=== PATIENT | male | born 2000 | race Caucasian/White ===

== ENCOUNTER 2024-06-13 19:17 | Outpatient (REF) | payer OTHER, SELFPAY ==
--- NOTE | ~2024-06-13 | MR_ITS ---
CLINICAL HISTORY: lbp LBP and both hips/groins pain. Possibly got hurt from exercising MR lumbar spine without gadolinium Comparison: None available. Findings: Normal heights of 5 lumbar type vertebrae. No significant listhesis. Heterogeneous marrow signal of the small hemangiomas conus terminates at lower aspect of the L1. No drainable paraspinal fluid collection. No spinal canal stenosis, foraminal narrowing, or nerve root compromise of the lumbar spine. Mild facet arthropathy of the lower lumbar spine. Degenerative disc change with annular fissure and small disc bulge at L5-S1 where there is moderate disc height loss. No CT available for review at this time Abnormal STIR signal support some degree of the acuity of the nondisplaced right sacral alar fracture. Fracture extends to right S1-S2 neural foramen. No malalignment of the imaged SI joints. IMPRESSION: 1. Acute right sacral alar fracture. 2. Disc bulge and annular fissure of the L5-S1 intervertebral disc. 3. No significant spinal stenosis or nerve root compromise of the lumbar spine. This document has been electronically signed by: Valdo Werner MD on 06/13/2024 20:24:18
--- OUTSIDE RECORDS SUMMARY | 2024-06-13 19:51 | XMS_ITS ---
Author Organization [facility] Address [address] [place] [phone] Care Team Providers Care Security Control Assessor Name Role Phone Eugenio Back Primary Care Provider REASON FOR VISIT Rash Medications Medication SIG (Take, Route, Fr equency, Duration) Notes Start Date End Date Status predniSONE 50 mg 1 tab(s) orally once a day for 7 day(s) 11/13/2020 Not-Taking Encounters Encounter Location Date Provider Diagnosis [address] [id number] 09/28/2023 Eugenio Back Plan Of Treatment No Information Progress Notes * MONAE MOOREDOB:2000 ([age] yo M)Acc No.[id number]:09/28/2023 progress note Patient:MONAE KAMARA Account Number:[id number] Provider:?Eugenio Back MD :2000???Age:23 Y???Sex:Male Meng e:09/28/2023 Phone: Address:[address] [place], [place] [phone] Subjective: * Chief Complaints: * ???1. Rash. * Medical History:? * Medications:?Not-Taking pred niSONE 50 mg tablet 1 tab(s) orally once a day Objective: * Vitals:? Assessment: Plan: * Treatment: * * Electronic signature of Oni Back MD on 06/13/2024 at 07:51 PM EST Sign off status: Pending * Provider:?Eugenio Back MD Date:? 024 Generated for Baldevi ng/Fafraciscog/eTransmitting on:?06/13/2024 07:51 PM EST
--- OUTSIDE RECORDS SUMMARY | 2024-06-13 19:51 | XMS_ITS ---
Author Organization [facility] Address [address] [place] [phone] Care Team Providers Care Basting Machine Operator Name Role Phone Eugenio Back Primary Care Provider [phone] Allergies No Known Allergies REASON FOR VISIT groin pain, pt here alone Medications Medication SIG (Take, Route, Fr equency, Duration) Notes Start Date End Date Status predniSONE 50 mg 1 tab(s) orally once a day for 7 day(s) 11/13/2020 Not-Taking Vital Signs Weight 174.8 lbs 10/03/2023 Temperature 97.4 degrees Fahrenheit 10/03/19 24 Encounters Encounter Location Date Provider Diagnosis [address] [id number] 10/03/2023 Eugenio Back Right groin pain R10.31 Assessments Encounter Date Diagnosis (ICD Code) Assessment Notes Treatment Notes Treatment Clinical Notes Section Notes 10/03/2023 Right groin pain (ICD-10 - R10.31) Plan Of Treatment Next Appt Details Follow Up: prn, Reason: Progress Notes * MONAE MOOREDOB:2000 ([age] yo M)Acc No.[id number]:10/03/2023 progress note Patient:?MONAE MOORE Account Number:[id number] Provider:?Eugenio Back MD :2000???Age:23 Y???Sex:Male Meng e:10/03/2023 Phone: Address:[address] [place], [place] [phone] Subjective: * Chief Complaints: * ???1. Groin pain. 2. Pt here alone. * HPI: ???Anxiety:? has had a nagging pain in right side has been bad since march no swelling, pop or click there pain does not go into testicle. * Medical History:? * Medications:?Not-Taking pred niSONE 50 mg tablet 1 tab(s) orally once a day * Allergies:?N.K.D.A. Objective: * Vitals:?WT: 174.8, Temp: 97. 4. * Examination: ???Brief Normal Exam: ???RIGHT LEG- TENDER OVER HIP FLEXOR AT GROIN CREASE AND IN LOWER ABDOMEN PAIN WITH HOLDING LEG AGAINST GRAVITY AND INTERNAL AND EXTERNAL MOTION. Assessment: * Assessment: 1.?Right groin pain - R10.31 (Primary)? Plan: * Treatment: * Procedures:?to PT - numbers given. ? * Follow Up:?prn * Images: * Sign off status: Completed true * Provider:?Eugenio Back MD Date:? 024 Generated for Jerry bray/Rae/eTransmitting on:?06/13/2024 07:51 PM EST History and Physical Notes * HPI (History of Present Illness) Category Sub-Category Detail Notes Category Not es Anxiety has had a nagging pain in right side has been bad since march no swelling, pop or click there pain does not go into testicle Examination Category Sub-Category Detail Notes Category Not es Brief Normal Exam RIGHT LEG- TENDER OVER HIP FLEXOR AT GROIN CREASE AND IN LOWER ABDOMEN PAIN WITH HOLDING LEG AGAINST GRAVITY AND INTERNAL AND EXTERNAL MOTION
--- OUTSIDE RECORDS SUMMARY | 2024-06-13 19:51 | XMS_ITS | Patient Health Record ---
Author Organization [facility] Address [address] [place], [place] [phone] Care Team Providers Care Payroll Services Analyst Name Role Phone Eugenio Back Primary Care Provider Allergies No Known Allergies Reason For Referral No Information Medications Medication SIG (Take, Route, Fr equency, Duration) Notes Start Date End Date Status predniSONE 50 mg 1 tab(s) orally once a day for 7 day(s) 11/13/2020 Not-Taking Immunizations Vaccine Route Administration Date Status Comme nts Varivax -PURCHASED Unknown 2002 Administered Varivax -PURCHASED Unknown 03/22/2006 Administered TDAP * ID Intradermal 11/12/2019 Administered Tdap Unknown 09/01/2010 Administered Prevnar 13 Unknown 2001 Administered Prevnar (#4) Unknown 09/13/2002 Administered Prevnar (#3) Unknown 2001 Administered Prevnar (#2) Unknown 2001 Administered MMR* Unknown 03/21/2005 Administered MMR Unknown 2002 Administered Meningitis B Purchased* IM Intramuscular 11/12/2019 Admini stered Meningitis B Purchased* IM Intramuscular 11/13/2020 Admini stered MENACTRA-STATE SUPPLY * IM Intramuscular 11/12/2019 Admini stered Menactra Unknown 09/01/2010 Administered IPV * Unknown 2001 Administered IPV (#4) * Unknown 03/21/2005 Administered IPV (#3) * Unknown 09/13/2002 Administered IPV (#2) * Unknown 2001 Administered Influenza H1N1 Unknown 03/25/2009 Administered Influenza H1N1 Unknown 04/28/2009 Administered Influenza > 6 months of age Unknown 03/09/2006 Administered Influenza > 6 months of age Unknown 02/13/2007 Administered Influenza > 6 months of age Unknown 02/07/2008 Administered Influenza > 6 months of age Unknown 12/23/2008 Administered Influenza > 6 months of age Unknown 01/17/2013 Administered Influenza > 6 months of age IM Intramuscular 03/10/2015 Administered Influenza > 6 months of age IM Intramuscular 03/09/2016 Administered Influenza > 6 months of age IM Intramuscular 05/17/2019 Administered HPV9-State Supply * IM Intramuscular 10/29/2015 Administer ed HPV9-State Supply * IM Intramuscular 12/29/2015 Administer ed HPV9-State Supply * IM Intramuscular 05/03/2016 Administer ed Hib (#4) * Unknown 06/14/2002 Administered Hib (#3) * Unknown 2001 Administered Hib (#2) * Unknown 2001 Administered Hib Unknown 2001 Administered Hepatitis B (#3) * Unknown 2001 Administered Hepatitis B (#2) * Unknown 2001 Administered Hepatitis A (#2), State Supply * IM Intramuscular 11/05/2018 Administered Hepatitis A (#1), State Supply * IM Intramuscular 11/01/2016 Administered HEP B Unknown 2001 Administered DTaP (#5) * Unknown 03/21/2005 Administered DTaP (#4) * Unknown 09/13/2002 Administered DTaP (#3) * Unknown 2001 Administered DTaP (#2) * Unknown 2001 Administered DTaP Unknown 2001 Administered COVID-19 Moderna Unknown 08/12/2020 Administered COVID-19 Moderna Unknown 09/09/2020 Administered COVID-19 Moderna Unknown 04/07/2021 Administered Social History PHQ2 Question Answer Notes Little interest or pleasure in doing things No Feeling down depressed or hopeless No Problems Problem Type SNOMED Code ICD Code Onset Dates Problem Status W/U Status Risk Notes Problem [id number] Anxiety about health (F41.8) Active confirmed Vital Signs Temperature 97.4 degrees Fahrenheit 10/03/2023 Weight 174.8 lbs 10/03/2023 Encounters Encounter Location Date Provider Diagnosis [address] [id number] 10/03/2023 Eugenio Back Right groin pain R10.31 Assessments Encounter Date Diagnosis (ICD Code) Assessment Notes Treatment Notes Treatment Clinical Notes Section Notes 10/03/2023 Right groin pain (ICD-10 - R10.31) Plan Of Treatment No Information Insurance Providers Payer Name Payer Address Payer Phone Subscriber Number Group Number Insured Name Patient Relationship to Insured Coverage Start Date Coverage End Date [facility] OTHER [address] [place] [address] [id number] MONAE MOORE Self - patient is the insured 3
--- OUTSIDE RECORDS SUMMARY | 2024-06-13 19:51 | XMS_ITS | Clinical Summary ---
Author Organization [facility] Address [address] [place] [phone] Care Team Providers Care Labor Relations Teacher Name Role Phone Paola Galvan Primary Care Provider [phone] Social History Tobacco Use Types Packs/Day Years Used Date Smoking Tobacco: Never Assessed Sex and Gender Information Value Date Recorded Sex Assigned at Not on file Legal Sex Male 9:35 PM EDT Gender Identity Not on file Sexual Orientation Not on file Plan of Treatment Health Maintenance Due Date Last Done Comments Blood Pressure 2001 Depression Screening 2005 Hepatitis C Screening 2019 DTaP,Tdap,and Td Vaccines (1 - Tdap) 2020 COVID-19 Vaccine ( - 2023-2 5 season) 2023 Influenza Vaccine (#1) 2023 Meningococcal Vaccines Aged Out No lo nger eligible based on patient's age to complete this topic Pneumococcal Vaccine: Pediat rics (0 to 5 Years) and At-Risk Patients (6 to 64 Years) Aged Out No longer eligible b ased on patient's age to complete this topic Care Teams Labor Relations Teacher Relationship Specialty Start Date End Date Paola Galvan [address] [place] [phone] PCP - General 11/28/22
--- OUTSIDE RECORDS SUMMARY | 2024-06-13 19:51 | XMS_ITS ---
Author Organization [facility] Address [address] [place] [phone] Care Team Providers Care Car Supervisor Name Role Phone Eugenio Back Primary Care Provider REASON FOR VISIT 23 yo Encounters Encounter Location Date Provider Diagnosis [address] [id number] 11/02/2023 Eugenio Back Plan Of Treatment No Information Progress Notes * MONAE MOOREDOB:2000 ([age] yo M)Acc No.[id number]:11/02/2023 Progress note Patient:?MONAE MOORE Account Number:[id number] Provider:?Eugenio Back MD :2000???Age:23 Y???Sex:Male Meng e:11/02/2023 Phone: Address:[address] [place], [place] [phone] Subjective: * Chief Complaints: * ???1. 23 yo. * Medical History:? Objective: * Vitals:? Assessment: Plan: * Treatment: * * Electronic signature of Oni Back MD on 06/13/2024 at 07:50 PM EST Sign off status: Pending * Provider:?Eugenio Back MD Date:? 024 Generated for Jerry bray/Rae/eTtrippsmitting on:?06/13/2024 07:50 PM EST
== END 2024-06-13 19:18 | disposition home or self-care (01) ==
LOC: HO.MRI 19:17
PROVIDERS: Visit Provider Family Medicine
DX: M54.50 Low back pain, unspecified (principal)
CPT/HCPCS: 72148

== ENCOUNTER → 2024-06-13 19:30 | Outpatient (BNV) | payer OTHER, SELFPAY | PROVIDERS: Visit Provider Radiology Neuroradiology | DX: S32.119A Unspecified Zone I fracture of sacrum, initial encounter for closed fracture (principal); M51.27 Other intervertebral disc displacement, lumbosacral region | CPT/HCPCS: 72148 ==